=== PATIENT | male | born 1980 | race Caucasian/White ===

== ENCOUNTER 2017-03-27 20:44 | Emergency (ER) | payer BC ==
[~2017-03-27] VITALS: Ht 172.7 cm; Wt 86.5 kg
[~2017-03-27 20:44] MED LIST: ATEN-51 PO; DEXM15CP PO; DIAZ5TAB4 PO; FAMO20TA18 PO; LORA-441 PO; LORA1TAB PO; MIRT7.5T8 PO
[2017-03-27 20:48] VITALS: Ht 172.7 cm; Wt 86.5 kg
--- NOTE | 2017-03-27 23:28 | ERD ---
ER Documentation Chief Complaint Date/Time DATE: 03/27/17 TIME: 23:24 Chief Complaint Pt facial numbness, anxious, head feels "heavy", and dizziness X 1 day. HPI This patient is a 35-year-old male with past medical history of anxiety presenting to the emergency department for dizzy, lightheadedness, and a "heavy " feeling in his head which began this morning after smoking marijuana. He states he has never had a sensation in the past. The patient takes multiple medications for psychiatric issues. The patient denies any homicidal or suicidal ideation. Symptoms have been improving throughout the day. The patient denies any chest pain, palpitations, shortness of breath, numbness or tingling, weakness on one side of the body, or other symptoms at this time. ROS All systems reviewed and are negative except as per history of present illness. Medications Home Meds Active Scripts Lorazepam* (Lorazepam*) 1 Mg Tablet, 1 MG PO ONCE, #1 TAB Prov:SHARRON FALL NP 07/05/16 Lorazepam* (Lorazepam*) 1 Mg Tablet, 1 MG PO Q8, #15 TAB Prov:LAMINE VARGAS MD 07/03/16 Famotidine* (Famotidine*) 20 Mg Tablet, 20 MG PO DAILY, #30 TAB Prov:DEVANG SANTAMARIA PA-C 05/24/16 Lorazepam* (Ativan*) 0.5 Mg Tablet, 0.5 MG PO Q8, #7 TAB Prov:DEVANG SANTAMARIA PA-C 05/24/16 Reported Medications Mirtazapine* (Mirtazapine*) 7.5 Mg Tablet, 7.5 MG PO HS, TAB 07/03/15 Dexmethylphenidate Hcl (Focalin Xr) 15 Mg Cpmp.50.50, 15 MG PO DAILY 07/03/15 Atenolol* (Atenolol*) 25 Mg Tablet, 25 MG PO BID, TAB 07/03/15 Diazepam* (Diazepam*) 5 Mg Tablet, 5 MG PO TID Y for ANXIETY, TAB 07/03/15 Allergies Allergies: Coded Allergies: lactose (Verified Allergy, Unknown, 07/04/16) Uncoded Allergies: DAIRY PRODUCTS (Allergy, Unknown, 04/15/16) PMhx/Soc History of Surgery: No Anesthesia Reaction: No Hx Neurological Disorder: No Hx Respiratory Disorders: No Hx Cardiac Disorders: No Hx Psychiatric Problems: Yes (Anxiety and withdrawal on Ativan) Hx Miscellaneous Medical Probl: No Hx Alcohol Use: No Hx Substance Use: Yes Hx Tobacco Use: No FmHx Noncontributory for chief complaint Physical Exam Vitals Vital Signs Date Time Temp Pulse Resp B/P Pulse Ox O2 Delivery O2 Flow Rate FiO2 03/27/17 20:48 99.1 82 16 145/89 99 Physical Exam Const: Patient is resting comfortably in no acute distress. Nontoxic-appearing. Head: Atraumatic Eyes: Normal Conjunctiva ENT: Normal External Ears, Nose and Mouth. Neck: Full range of motion..~ No meningismus. Resp: Clear to auscultation bilaterally Cardio: Regular rate and rhythm, no murmurs Abd: Soft, non tender, non distended. Normal bowel sounds Skin: No petechiae or rashes Back: No midline or flank tenderness Ext: No cyanosis, or edema Neur: Awake and alert Psych: Normal Mood and Affect Procedures/MDM 36-year-old male presents secondary to complaints of lightheadedness and feeling that his head is "heavy". On physical examination the patient's blood pressure was found to be 145/89. Patient's blood pressure was elevated (>120/80 ) but appears stable without evidence of hypertension emergency or urgency. The patient was counseled about the risks of hypertension and urged to pursue outpatient monitoring and therapy within a week with their primary care physician. EKG: Interpreted by ED physician Rate/Rhythm: Normal sinus rhythm with a rate of 69 bpm. QRS, ST, T-waves: No changes consistent w/ acute ischemia Impression: No evidence of ischemia or arrhythmia I believe that the patient's symptoms are most likely due to a adverse drug reaction to the marijuana that he smoked earlier as well as possibly secondary to anxiety. The patient is on multiple medications for anxiety. The patient adamantly denies homicidal or suicidal ideation. I feel confident that with a normal EKG the patient's symptoms were resolved with time. The patient was given extensive counseling to have cessation for marijuana unless it is specifically prescribed for medical problems. Patient understands and agrees with the discharge plan of diagnosis. Strict ER return precautions were discussed with the patient is to have close follow-up with primary care physician in the next 1-2 days. I have low suspicion for cardiac ischemia, pneumothorax, or other emergent conditions Departure Diagnosis: Primary Impression: Anxiety reaction Additional Impression: Adverse drug reaction Encounter type: initial encounter Qualified Code: T88.7XXA - Adverse drug reaction, initial encounter Condition: Fair Patient Instructions: Your Body's Response to Anxiety, Anxiety Reaction Additional Instructions: Follow up with your PCP within the next 1-3 days for a more thorough evaluation and a possible referral to a specialist. Return the the emergency department immediately if symptoms worsen or change. If you have any questions regarding medications, ask your pharmacist or us before you leave. If any adverse reactions, occur while taking your medications, discontinue the treatment and return to the emergency department immediately. If any new or worsening symptoms, uncontrolled fevers, or other unexplained symptoms occur, return to the emergency department immediately. Take your medications as directed, and complete the entire course of treatment. LISSA MARTINEZ PA-C March 27, 2017 23:28
== END 2017-03-27 22:43 | disposition home or self-care (01) ==
LOC: FTE 20:44
DX: F41.1 Generalized anxiety disorder (principal); T40.7X5A Adverse effect of cannabis (derivatives), initial encounter
CPT/HCPCS: 93005